=== PATIENT | male | born 2000 | race Caucasian/White ===

== ENCOUNTER 2024-09-15 08:45 | Outpatient (CLI) | payer OTHER, SELFPAY | END 2024-09-15 08:46 | disposition home or self-care (01) | PROVIDERS: PCP Nurse Practitioner Family; Visit Provider Nurse Practitioner Family | DX: R53.83 Other fatigue (principal); E66.9 Obesity, unspecified; Z13.0 Encounter for screening for diseases of the blood and blood-forming organs and certain disorders involving the immune mechanism; Z13.1 Encounter for screening for diabetes mellitus | CPT/HCPCS: 80061; 82947; 84403; 84443; 85025 ==